=== PATIENT | female | born 1960 | race Caucasian/White ===

== ENCOUNTER → 2019-02-26 12:40 | Outpatient (CLI) | payer OTHER, SELFPAY ==
--- NOTE | 2019-02-26 12:43 | DI.US.S_ITS ---
PROCEDURE: US PERIPH VENOUS LOW EXTREM RT INDICATIONS: Rule out aneurysm TECHNIQUE: Real-time imaging, as well as color and pulse Doppler interrogation, were performed of the lower extremity deep veins from the inguinal ligament to the popliteal fossa. COMPARISON: None. FINDINGS: The common femoral, femoral and popliteal veins are normally compressible, and free of intraluminal thrombus. Color and pulse Doppler demonstrate normal phasic intraluminal flow. There is normal augmentation response to distal compression maneuver. Patient's reported area of palpable lump correlates to prominent varicose veins which all appears compressible. No evidence of intraluminal filling defect. Multiple lymph nodes are seen in right inguinal region and right proximal thigh measures up to 3.2 x 1.3 x 1.8 cm in size. IMPRESSION: 1. No evidence of DVT in visualized right lower extremity veins. 2. Compressible varicose veins in right calf region corresponds to patient's reported area of palpable lump. No evidence of venous thrombosis within the varicose veins. 3. Prominent right renal lymph nodes as above. Dictated by: Sylvester Whatley M.D. on 02/26/2019 at 13:47 Approved by: Sylvester Whatley M.D. on 02/26/2019 at 13:53
== END ==
PROVIDERS: PCP Nurse Practitioner; Visit Provider Nurse Practitioner
DX: M79.604 Pain in right leg (principal); I83.811 Varicose veins of right lower extremity with pain; I83.891 Varicose veins of right lower extremity with other complications; R59.0 Localized enlarged lymph nodes; M79.89 Other specified soft tissue disorders
CPT/HCPCS: 93971

== ENCOUNTER → 2019-03-12 07:57 | Outpatient (CLI) | payer OTHER, SELFPAY ==
--- NOTE | 2019-03-12 09:06 | DI.CT.S_ITS ---
PROCEDURE: CT ABDOMEN PELVIS W CON INDICATIONS: swollen lymph nodes right renal, inguinal, TECHNIQUE: After the administration of oral and intravenous contrast, 5 mm thick sections acquired from the diaphragms to the symphysis. 5 mm thick coronal and sagittal reformats were performed. For radiation dose reduction, the following was used: automated exposure control, adjustment of mA and/or kV according to patient size. COMPARISON: [facility], , PERIPH VENOUS LOW EXTREM RT, 02/26/2019, 13:07. FINDINGS: Image quality: Excellent. ABDOMEN: Lung bases: Lung bases are clear. Heart size is normal. Solid organs: Liver is normal in size and enhancement. Gallbladder unremarkable. Biliary system is non-dilated. Pancreas enhances normally. Borderline splenomegaly measuring 11.5 cm in the cephalocaudad dimension No adrenal nodules. Kidneys are normal in size and enhancement, without hydronephrosis. Peritoneum and bowel: Stomach, small bowel, and colon loops are normal in caliber and wall thickness. No free fluid or air. Nodes and vessels: Aorta and IVC are unremarkable. Numerous retroperitoneal aortocaval lymphadenopathy is seen measuring up to 2.7 x 2.2 cm in the left periaortic region image 39 series 2. Borderline enlarged mesenteric lymph nodes also present for example image 42 series 2. Miscellaneous: No ventral hernias. Right chest wall/lower axillary adenopathy measures 1 cm on image 4 series 2. PELVIS: Genitourinary: Bladder unremarkable Miscellaneous: Extensive pelvic adenopathy involving the external iliac/common femoral chain, pelvic sidewall regions. Example enlarged right common femoral lymph node measuring 2.5 x 2.1 cm image 76 series 2 Bilateral inguinal enlarged lymph nodes measuring up to 2.1 x 1.5 cm on the right, and 2.4 x 1.3 cm on the left. Bones: No suspicious bony lesions. No vertebral body compression fractures. Left hip arthroplasty. Nonspecific sclerosis involving the anterior left sacral ala. Spondylosis and facet arthropathy. IMPRESSION: Diffuse abdominal and pelvic lymphadenopathy as detailed above (concordant with the ultrasound findings from comparison study dated 04/28/18), and borderline splenomegaly. Findings most concerning for lymphoma versus metastatic disease. Recommend oncology consultation Dictated by: Doug Damon M.D. on 03/12/2019 at 9:32 Approved by: Doug Damon M.D. on 03/12/2019 at 9:44
== END ==
PROVIDERS: Visit Provider Nurse Practitioner
DX: R59.0 Localized enlarged lymph nodes (principal); M79.604 Pain in right leg; M79.89 Other specified soft tissue disorders
CPT/HCPCS: 74177; Q9967

== ENCOUNTER 2019-03-13 19:26 | Emergency (ER) | payer OTHER, SELFPAY ==
[2019-03-13 19:34] VITALS: BP 184/99; PULSE 88; RESP 16; TEMP 37.1; O2SAT 100; BMI 35.5
--- NOTE | 2019-03-13 19:46 | DI.CT.S_ITS ---
PROCEDURE: CT HEAD/BRAIN WO CON INDICATIONS: Dizziness and not feeling well TECHNIQUE: Noncontrast 4.5 mm thick angled axial sections acquired from the foramen magnum to the vertex, with coronal and sagittal reformats. For radiation dose reduction, the following was used: automated exposure control, adjustment of mA and/or kV according to patient size. COMPARISON: None. FINDINGS: Image quality: Excellent. CSF spaces: Basal cisterns are patent. No extra-axial fluid collections. Ventricles are normal in size and shape. Brain: No midline shift. No intracranial masses or hemorrhage. Braga-white matter interface is normal. Skull and face: Calvarium and visualized facial bones are intact, without suspicious lesions. Sinuses: Visualized sinuses and mastoids are clear. IMPRESSION: Normal for age. Dictated by: Sascha Rivas M.D. on 03/13/2019 at 20:25 Approved by: Sascha Rivas M.D. on 03/13/2019 at 20:26
[2019-03-13 20:09] LABS: Prothrombin Time 11.3 SECONDS (10.1-12.7)
[2019-03-13 20:10] LABS: Hematocrit 39.9 % (36-46); Hemoglobin 13.4 g/dL (12.0-16.0); Mean Corpuscular HGB Conc 33.5 % (30-36); Mean Corpuscular Volume 89.5 fL (80-100); Platelet Count 111 X10^3/uL (150-400); Red Blood Cell Count 4.46 X10^6/uL (4.0-5.2); Red Cell Distribution Width 14.7 % (11.6-14.8); White Blood Cell Count 17.6 X10^3/uL (4.5-11.0)
[2019-03-13 20:12] LABS: PTT Partial Thromboplastin Tim 31 SECONDS (26.4-36.2)
[2019-03-13 20:13] LABS: Add Manual Diff / Slide Review YES
[2019-03-13 20:14] LABS: Alanine Aminotransferase 21 IU/L (<35); Albumin 4.5 g/dL (3.5-5.0); Albumin Globulin Ratio 1.7 (1.0-2.8); Alkaline Phosphatase 80 U/L (38-126); Aspartate Aminotransferase 34 IU/L (14-36); Bilirubin Total 0.5 mg/dL (0.2-1.3); Blood Urea Nitrogen 20 mg/dL (7-17); Calcium 9.3 mg/dL (8.4-10.2); Carbon Dioxide 24 mmol/L (22-32); Chloride 104 mmol/L (98-107); Estimated Glomerular Filt Rate 56.9 mL/min (>60); Globulin 2.7 g/dL (1.7-4.1); Glucose 106 mg/dL (70-100); Lipase 190 U/L (23-300); Potassium 4.7 mmol/L (3.4-5.1); Sodium 136 mmol/L (137-145); Total Protein 7.2 g/dL (6.3-8.2)
[2019-03-13 20:16] LABS: HEMOLYSIS 61 (0-50)
--- NOTE | 2019-03-13 20:20 | ED.NEUROSD ---
HPI - Neuro Symptoms/Deficit General Chief Complaint: Neuro Symptoms/Deficit Stated Complaint: dizzy, shakey, states burning in her brain Time Seen by Provider: 03/13/19 19:45 Source: patient Mode of arrival: Wheelchair Limitations: no limitations History of Present Illness HPI Narrative: 58-year-old female here for evaluation of multiple symptoms to include headaches, dizziness, nausea and vomiting. She states she woke up earlier today with the room spinning sensation. Has had multiple episodes of vomiting throughout the day. She states that the dizziness episodes of worsening throughout the day now she has a headache. She states that it feels like her brain is on fire. No vision changes, no rashes. No numbness and tingling in upper and lower extremities. On Anticoagulants: No Related Data Previous Rx's Medication Instructions Recorded lisinopril 2.5 mg tablet 2.5 mg PO DAILY #30 tab 02/26/19 meclizine 25 mg PO TID PRN #21 tab 03/13/19 ondansetron HCl [Zofran] 4 mg PO Q6H PRN #10 tab 03/13/19 Allergies Allergy/AdvReac Type Severity Reaction Status Date / Time No Known Drug Allergies Allergy Unverified 03/13/19 19:42 Review of Systems Constitutional Constitutional: Denies fever(s) and Reports headache(s) Eyes Eyes: Denies change in vision ENT Ears, Nose, Mouth, and Throat: Reports headache(s), Reports sinus pressure and Denies sore throat Cardiovascular Cardiovascular: Denies chest pain, Denies edema, Denies palpitations and Denies dyspnea Respiratory Respiratory: Denies dyspnea Gastrointestinal Gastrointestinal: Denies abdominal pain, Denies change in stool character, Reports nausea and Reports vomiting Musculoskeletal Musculoskeletal: Denies myalgias and Denies arthralgias Integumentary/Breasts Skin/Breast: Denies lesions and Denies rash Neurologic Neurologic: Denies burning sensations and Reports headache(s) Endocrine Endocrine: Denies palpitations Hematologic/Lymphatic Hematologic/Lymphatic: Denies easy bleeding and Denies easy bruising Patient History Medical History Acne (Inactive ~1980) Asthma (Chronic) Carpal tunnel syndrome (Chronic) Cervical cancer (Chronic ~2012) Hip pain, right (Chronic) Thyroid nodule (Chronic) Varicose vein of leg (Acute) Surgical History (Updated 03/03/19 @ 20:01 by Kyung Trinidad) Anesthesia (Resolved) History of hip replacement (~03/2013) History of third molar tooth extraction Status post cone biopsy of cervix (~08/2013) Family History (Updated 03/03/19 @ 20:04 by Kyung Trinidad) Brother Age: 76 High cholesterol Mother Essential hypertension Mental health problem Sister Age: 67 Joint problem Father Cancer Grandfather Cancer Grandmother Stroke Social History Smoking Status: Never smoker alcohol intake: current substance use type: does not use alcohol intake frequency: holidays/special occasions only Substance Use Type: does not use Exam Initial Vital Signs Initial Vital Signs: Vital Signs Temperature 98.8 F 03/13/19 19:34 Pulse Rate 88 03/13/19 19:34 Respiratory Rate 16 03/13/19 19:34 Blood Pressure 184/99 H 03/13/19 19:34 Pulse Oximetry 100 03/13/19 19:34 Const General: cooperative and comfortable Orientation: alert, awake and oriented x3 HENMT Head: normal to inspection and normocephalic Ears: TM's normal bilaterally Nose: external nose normal Eyes Pupils: PERRL EOM: EOM intact bilaterally Resp Effort & Inspection: normal respiratory effort Auscultation: clear to auscultation bilaterally Cardio Rate: regular rate Rhythm: regular rhythm GI Inspection: non-distended Palpation: soft and No firm Back/Spine/Pelvis Back: No CVA tenderness Skin Lesions: no lesions Rashes: no rashes Neuro General: alert, awake and oriented x3 Cranial Nerves: CN's II-XI intact bilaterally Cognition: normal cognition Speech: speech normal Gait: normal gait Motor: muscle tone normal throughout Sensory Exam: no sensory deficits noted Extrem General: normal to inspection and capillary refill normal Psych Appearance: grossly normal and well kempt Course Orders Ordered: ED Orders 03/13/19 19:42 Complete Blood Count AUTO DIFF Stat Comprehensive Metabolic Panel Stat Ethanol (ETOH) Stat Lipase Stat Partial Thromboplastin Time Stat Prothrombin Time INR Stat Troponin I Stat 03/13/19 19:46 CT head/brain wo con Stat 03/13/19 19:47 EKG-12 Lead Stat Discontinued Medications Diazepam (Valium) 2 mg IV NOW ONE Stop: 03/13/19 20:22 Last Admin: 03/13/19 20:31 Dose: 2 mg Documented by: ABDULAZIZ Diphenhydramine HCl (Benadryl) 25 mg IV NOW ONE Stop: 03/13/19 21:36 Last Admin: 03/13/19 21:42 Dose: 25 mg Documented by: ABDULAZIZ Sodium Chloride (Normal Saline 0.9%) 1,000 mls @ 1,000 mls/hr IV BOLUS ONE Stop: 03/13/19 20:44 Last Infusion: 03/13/19 20:49 Dose: 1,000 mls/hr Documented by: Admin: 03/13/19 20:41 Dose: 1,000 mls/hr Documented by: ABDULAZIZ Metoclopramide HCl (Reglan) 10 mg IV NOW ONE Stop: 03/13/19 21:36 Last Admin: 03/13/19 21:42 Dose: 10 mg Documented by: ABDULAZIZ Ondansetron HCl (Zofran) 4 mg IV NOW ONE Stop: 03/13/19 20:22 Last Admin: 03/13/19 20:31 Dose: 4 mg Documented by: ABDULAZIZ Vital Signs Vital signs: Vital Signs - 8 hr 03/13/19 19:34 03/13/19 21:00 03/13/19 21:40 Temperature 98.8 F Pulse Rate 88 88 90 Respiratory Rate 16 16 16 Blood Pressure 184/99 H Blood Pressure [Right Arm] 126/72 135/83 Pulse Oximetry 100 97 97 03/13/19 22:27 Temperature Pulse Rate 89 Respiratory Rate 18 Blood Pressure 128/70 Blood Pressure [Right Arm] Pulse Oximetry 94 MDM - Neuro Symptoms/Deficit Lab Data Attestation: I reviewed the patient's lab results. Result diagrams: 03/13/19 19:42 03/13/19 19:42 Labs: Lab Results 03/13/19 03/13/19 03/13/19 Range/Units 19:42 19:42 19:42 WBC 17.6 H (4.5-11.0) X10^3/uL RBC 4.46 (4.0-5.2) X10^6/uL Hgb 13.4 (12.0-16.0) g/dL Hct 39.9 (36-46) % MCV 89.5 (80-100) fL MCH 30.0 (26-34) PG MCHC 33.5 (30-36) % RDW 14.7 (11.6-14.8) % Plt Count 111 L (150-400) X10^3/uL Neut % (Auto) Not Reportable Lymph % (Auto) Not Reportable [place] % (Auto) Not Reportable Eos % (Auto) Not Reportable Baso % (Auto) Not Reportable Lymph # (Auto) Not Reportable [place] # (Auto) Not Reportable Baso # (Auto) Not Reportable Total Counted 100 Seg Neutrophils % 14.0 L (38-70) % Band Neutrophils % 2.0 L (3-7) % Lymphocytes % (Manual) 80.0 H (25-45) % Monocytes % (Manual) 3.0 (2-11) % Eosinophils % (Manual) 1.0 L (2-4) % Neutrophils # (Manual) 2816 L (1279-9414) /uL Reactive Lymphocytes 1+ H Platelet Estimate Decreased on smear RBC Morphology Normal morphology PT 11.3 (10.1-12.7) SECONDS INR 1.0 (0.9-1.3) APTT 31 (26.4-36.2) SECONDS Sodium 136 L (137-145) mmol/L Potassium 4.7 (3.4-5.1) mmol/L Chloride 104 (98-107) mmol/L Carbon Dioxide 24 (22-32) mmol/L BUN 20 H (7-17) mg/dL Creatinine 1.00 (0.52-1.04) mg/dL Estimated GFR 56.9 L (>60) mL/min BUN/Creatinine Ratio 20.0 (6-22) Glucose 106 H (70-100) mg/dL Calcium 9.3 (8.4-10.2) mg/dL Total Bilirubin 0.5 (0.2-1.3) mg/dL AST 34 (14-36) IU/L ALT 21 (<35) IU/L Alkaline Phosphatase 80 (38-126) U/L Troponin I < 0.012 (0.01-0.034) ng/mL Total Protein 7.2 (6.3-8.2) g/dL Albumin 4.5 (3.5-5.0) g/dL Globulin 2.7 (1.7-4.1) g/dL Albumin/Globulin Ratio 1.7 (1.0-2.8) Lipase 190 (23-300) U/L Ethyl Alcohol < 10 ( - 10) mg/dL Imaging Data CT scan - head: Radiologist's impression: [address] [address] [address] Scan Report Signed Patient: Monika Jeffers [facility]#: [id number] : 1Acct:[id number] Age/Sex: 58 / FDate of Service: 03/13/19 Loc: ED Accession Number: [id number] Procedure: CT head/brain wo con Ordering Provider: Brandon Rivera D.O. PROCEDURE: CT HEAD/BRAIN WO CON INDICATIONS: Dizziness and not feeling well TECHNIQUE: Noncontrast 4.5 mm thick angled axial sections acquired from the foramen magnum to the vertex, with coronal and sagittal reformats. For radiation dose reduction, the following was used: automated exposure control, adjustment of mA and/or kV according to patient size. COMPARISON: None. FINDINGS: Image quality: Excellent. CSF spaces: Basal cisterns are patent. No extra-axial fluid collections. Ventricles are normal in size and shape. Brain: No midline shift. No intracranial masses or hemorrhage. Braga-white matter interface is normal. Skull and face: Calvarium and visualized facial bones are intact, without suspicious lesions. Sinuses: Visualized sinuses and mastoids are clear. IMPRESSION: Normal for age. Dictated by: Sascha Rivas M.D. on 03/13/2019 at 20:25 Approved by: Sascha Rivas M.D. on 03/13/2019 at 20:26 ECG Data Attestation: I personally reviewed and interpreted this ECG as follows: Prior ECG tracings: not available for review Interpretation: Sinus rhythm Ventricular rate 80 Occasional PAC Normal QRS Normal QTC Nonspecific ST T wave changes MDM Narrative Medical decision making narrative: Patient does not have any focal neurologic deficits. Head CT is unremarkable. Does have a leukocytosis however this could be secondary to demargination from the vomiting. She also describes sinus congestion which could be causing leukocytosis as well from an upper respiratory infection. This sinus congestion could also be aiding to her vertigo and headache. Her vertigo was much improved after the Valium. The headache is much improved after Reglan and Benadryl. Patient states she feels much better. She was given return precautions and follow-up instructions. She expressed understanding and agreement with plan. We did discuss use of decongestants. Discharge Plan Departure Patient Disposition: Home Clinical Impression: Vertigo Headache Qualifiers: Headache type: unspecified Headache chronicity pattern: unspecified pattern Intractability: not intractable Qualified Code(s): R51 - Headache Discharge Date/Time: 03/13/19 22:27 Instructions: DI for Vertigo Activity Restrictions/Additional Instructions: Take the medications as directed. Increase your fluid intake. Recommend that you start on a antihistamine such as Claritin or Mikayla or Zyrtec. You can buy these [id number]. Contact your primary provider for follow-up. Return to the emergency department for any new symptoms Prescriptions: New meclizine 25 mg tablet 25 mg PO TID PRN (Reason: dizziness) Qty: 21 RF: 0 ondansetron HCl [Zofran] 4 mg tablet 4 mg PO Q6H PRN (Reason: nausea and vomiting) Qty: 10 RF: 0 No Action lisinopril 2.5 mg tablet 2.5 mg PO DAILY Qty: 30 RF: 1
[2019-03-13 20:26] LABS: Ethanol (ETOH) < 10 mg/dL; Troponin I < 0.012 ng/mL (0.01-0.034)
[2019-03-13] MEDS: ONDANSETRON 4 MG/2 ML INJ IV (20:31)
[2019-03-13] MEDS: diazePAM 10 MG/2 ML SYRINGE 2 MG IV (20:31)
[2019-03-13 20:37] LABS: Neutrophils Absolute Manual 2816 /uL (3000-5900); Total Cells Counted 100
[2019-03-13 20:38] LABS: Platelet Estimate Decreased on smear; RBC Morphology Normal Morphology
[2019-03-13 20:39] LABS: Reactive Lymphocytes 1+
[2019-03-13] MEDS: SODIUM CHLORIDE 0.9% 1,000 ML 1000 ML IV (20:41)
[2019-03-13 21:00] VITALS: BP 126/72; PULSE 88; RESP 16; O2SAT 97
[2019-03-13 21:40] VITALS: BP 135/83; PULSE 90; RESP 16; O2SAT 97
[2019-03-13] MEDS: METOCLOPRAMIDE 10 MG/2 ML INJ IV (21:42)
[2019-03-13] MEDS: diphenhydrAMINE 50 MG/ML VIAL 25 MG IV (21:42)
[2019-03-13 22:27] VITALS: BP 128/70; PULSE 89; RESP 18; O2SAT 94
== END 2019-03-13 22:27 | disposition home or self-care (01) ==
PROVIDERS: Emergency Provider Emergency Medicine
DX: R42 Dizziness and giddiness (principal); R51 Headache
CPT/HCPCS: 36415; 70450; 80053; 80320; 83690; 84484; 85025; 85610; 85730; 93005; 96374; 96375; 99283; 99285; J1200; J2405; J2765; J3360

== ENCOUNTER → 2019-03-27 15:56 | Outpatient (CLI) | payer OTHER, SELFPAY ==
--- NOTE | 2019-03-27 15:58 | DI.US.S_ITS ---
PROCEDURE: US SOFT TISSUE HEAD AND NECK INDICATIONS: RULE OUT PAROTID MASS, LYMHADENOPATHY TECHNIQUE: Real-time scanning was performed of the neck region of interest, with image documentation. COMPARISON: [facility], US, THYROID, 04/16/2014, 16:30. FINDINGS: Multiple prominent and mildly enlarged bilateral neck lymph nodes are noted ranging in size from 7-14 mm in short axis. Largest node is near the right parotid gland. No definite intraparotid masses are identified. Incidental note made of 5.0 x 2.6 x 3.9 cm complex nodule with minimal internal vascularity in the left lobe of thyroid gland and 3.1 x 2.4 x 2.2 cm predominately solid nodule in the right lobe of thyroid gland which are not significantly changed compared to prior thyroid ultrasound. IMPRESSION: Prominent and mildly enlarged bilateral neck lymph nodes which could be reactive or neoplastic. Recommend correlation with clinical data and CT scan the soft tissue neck with contrast if clinically indicated. Dictated by: Jaqueline Gordon MD, PhD on 03/27/2019 at 19:05 Approved by: Jaqueline Gordon MD, PhD on 03/27/2019 at 19:08
--- NOTE | 2019-03-27 15:58 | DI.RAD.S_ITS ---
PROCEDURE: XR CHEST 2V INDICATIONS: rule out pancoast tumor TECHNIQUE: 2 views of the chest were acquired. COMPARISON: None. FINDINGS: Surgical changes and devices: None. Lungs and pleura: Lungs are clear. No pleural effusions or pneumothorax. Mediastinum: Mediastinal contours are normal. Heart size is normal. Bones and chest wall: No suspicious bony abnormalities. Soft tissues appear unremarkable. IMPRESSION: Normal for age, no evidence of malignancy. Specifically no apical mass lesion is found. Depending on clinical status followup by MR scanning without and with contrast may be warranted if symptomatology is considered to be potentially primarily external to the chest cavity itself. Dictated by: Sascha Rivas M.D. on 03/27/2019 at 16:18 Approved by: Sascha Rivas M.D. on 03/27/2019 at 16:18
--- NOTE | 2019-03-30 13:36 | ONC.MSW ---
Description: New Referral Initial T/C Activity: Called pt to inform her that we've received her referral, introduced my role as navigator, and briefly discussed the role and services of ongoing navigation support. Pt is scheduled to have her biopsy tomorrow with [facility], and is requesting an urgent referral. INHALATION THERAPY AIDE assured her that I will work with scheduling to try to get her in next week, and that the next person that she will hear from will be the flooring mechanic. She expressed understanding, has no further needs at this time.
== END ==
PROVIDERS: Family Provider Nurse Practitioner; PCP Nurse Practitioner; Visit Provider Surgery
DX: R59.9 Enlarged lymph nodes, unspecified (principal); R93.89 Abnormal findings on diagnostic imaging of other specified body structures; H02.401 Unspecified ptosis of right eyelid
CPT/HCPCS: 71046; 76536

== ENCOUNTER 2019-03-31 06:31 | Day surgery (SDC) | payer OTHER, SELFPAY ==
[2019-03-30 10:30] VITALS: BMI 35.9
[2019-03-31] VITALS (7 sets, daily range): BP systolic 110–144; BP diastolic 65–88; PULSE 70–91; RESP 8–21; TEMP 36.1–36.3; O2SAT 96–100; BMI 35.4
--- NOTE | 2019-03-31 | PATH_ITS ---
[facility] Accession Number: [id number] . 01 Material submitted: . lymph node - LEFT NECK CERVICAL LYMPH NODE . 01 Clinical history: . Per a telephone conversation with Dr. Motta on 04/02/2019, the patient has diffuse lymphadenopathy, including involvement of lymph nodes in the cervical neck, axillae, and groin. . 01 Diagnosis: LYMPH NODE, LEFT NECK CERVICAL, EXCISIONAL BIOPSY: . Involvement by Small Lymphocytic Lymphoma (SLL; see Comments) JUAN 04/03/2019 1745 Local . 01 Comment: A subset of cells in the proliferation centers of the tissue exhibit weak nuclear expression of cyclin D1, a finding that has been described in some CLL/SLL cases (see reference). Evaluation of the patient's peripheral blood is recommended to determine if she may also exhibit an abnormal B-cell population in the peripheral circulation. If there is also peripheral blood involvement, FISH studies could be performed on the blood to look for genomic abnormalities with prognostic significance in CLL/SLL and to formally exclude the t(11;14) of mantle cell lymphoma. If the patient does not have significant peripheral blood involvement by CLL/SLL and if clinical interest warrants, sections of the paraffin-embedded tissue could also be forwarded upon request for a FISH study to further exclude the t(11;14) of mantle cell lymphoma. . REFERENCE: . Khadijah De Leon et al. (2012) Chronic Lymphocytic Leukemia/Small Lymphocytic Lymphoma with Cyclin D1 Positive Proliferation Centers Do Not Have CCND1 Translocations or Gains and Lack SOX11 Expression. Am. J. Clin. Pathol. 138(1):132-139. . 01 Electronically signed: . Maeve Otoole MD, Pathologist NPI- [id number] . 01 Gross description: . Received in formalin, labeled left neck cervical lymph node, is a lymph node (1.9 x 1.6 x 0.5 cm). Serially sectioned and entirely submitted in cassette A1. ([id number]) /MRV 04/01/2019 1453 Local . 01 Microscopic: . H/E-stained sections reveal several cross-sections of a mildly to moderately enlarged lymph node with essentially complete effacement by an atypical lymphoid infiltrate of predominantly small cell size. The lymphocytes have relatively round nuclei, condensed chromatin, and only a small amount of cytoplasm. Scattered pockets of larger lymphocytes are present that may represent overrun germinal centers or proliferation centers. Rare small groups of tissue histiocytes are also seen. There is no significant plasmacytic component discernable on the H/E, and no mixed inflammatory infiltrate of neutrophils or eosinophils is noted. The mitotic rate is low, and no areas of incipient or geographic necrosis are identified. No atypical Hodgkin-like cell population is seen, and there is no increase in background fibrosis or thickening of the milagros capsule. . Select immunohistochemical studies* were performed for further evaluation of the lymphoid infiltrate, with accompanying positive and negative controls. The abnormal lymphocytes are B-cells with uniform expression of Pax5 and CD20 (with variable intensity) and coexpression of uniform CD5 (with weak to moderate intensity) and bcl-2 (strong intensity), variable CD43 (weak to moderate intensity) and focal to variable CD23 (weak intensity). The B-cells are negative for bcl-6. Some of the larger lymphocytes in the proliferation centers exhibit weak nuclear expression of cyclin D1, but the vast majority of B-cells are negative for cyclin D1. The Py-02-dbrqtoy proliferation rate among the lymphocytes reaches up to 20-25% inside the scattered proliferation centers, but is only 2-3% among lymphocytes outside of the proliferation centers. Based on immunostains for kappa and lambda light chains, there is a suggestion of kappa expression/restriction among the abnormal B-cells, and a very small subset of background plasma cells exhibits mild kappa-skewing. A small subset of CD3+/CD5+ T-cells with more intense expression of CD5 and CD43 is also present in the background of the abnormal B-cells. . * Technical note: These tests and their performance characteristics have been determined by [facility]. They have not been cleared or approved by the U.S. Food and Drug Administration. The FDA has determined that such clearance or approval is not necessary. These tests are used for clinical purposes, and should not be regarded as investigational or for research. . 01 Pathologist provided ICD-10: C85.91, R59.1 . 01 CPT . 126684, A06801, H78415 Performed at: [address] [facility], [place], [place] [id number] MD Thiago Bautista MD Phone: [phone]
[2019-03-31] MEDS: LACTATED RINGERS 1,000 ML 42 ML IV (07:33)
--- NOTE | 2019-03-31 07:39 | PM.PREOP ---
Pre-operative Note Interval Note History & Physical reviewed/Exam performed by Physician: Yes Changes to H&P: No
[2019-03-31] MEDS: CEFAZOLIN 2 GM/100 ML FROZ.PIGGY IV (07:48)
--- NOTE | 2019-03-31 08:11 | SUR.OPER ---
Supine on padded OR bed, head on gel doughnut, bilateral arm padded and tucked at side, legs uncrossed, safety belt at thigh, tape over blanket over lower legs .
[2019-03-31] MEDS: BUPIVACAINE 0.25% W/ EPI (PF) 10 ML VIAL 20 ML INJ (08:17)
--- NOTE | 2019-03-31 08:49 | PM.OP.1 ---
Operative Date/Time/Diagnoses Date of procedure: 03/31/19 Time of procedure: 08:50 Pre-op diagnosis: lymphadenopathy Post-op diagnosis: same Procedure & Clinicians Procedure: left neck cervical lymph node excisional biopsy Same procedure as scheduled: Yes Indications: lymphadenopathy Surgeon: Meredith Motta Click Yes if Unassisted: Yes Anesthesia Type: General (LMA) Operative Notes Findings: Enlarged cervical node Closure Type: primary Specimen(s): other (left neck cervical chain lymph node) Prosthetic devices, grafts, tissues, transplants, or devices: Estimated Blood Loss (mL): 1 Blood products transfused: none Procedure in detail: The patient was brought into the operating room and placed supine on the OR table. Sequential compression devices were placed on both legs and turned on. Appropriate perioperative antibiotics were given prior to the start of surgery. General anesthesia was induced and the patient was intubated with an LMA. The left neck was prepped and draped in sterile fashion using Betadine. Surgical time-out was completed. Local anesthetic using 5 mL of 0.25% Marcaine with epi was injected in the skin overlying the palpable cervical chain node. A 2 cm longitudinal incision was then made using a 15 blade. Dissection was carried down through the platysma, and through the fascia of the sternocleidomastoid muscle. An enlarged lymph node was encountered, which was carefully dissected out from the surrounding tissue. Vascular and lymphatic structures going to the node were tied off with 3 0 silk. The lymph node was removed and passed off the table for pathology. Hemostasis was achieved in the neck using electrocautery very sparingly, and silk ties. There was good hemostasis at the end of the case. The skin was closed in 2 layers with 3 0 Vicryl and 4 Monocryl subcuticular suture. The skin edges were then sealed with Dermabond. This concluded the procedure. At this point the needle sponge and instrument counts were correct. The lymph node was passed off the table for pathology. Patient was awakened from anesthesia and extubated. She was transferred to the postanesthesia care unit in stable condition. Complications: none Post-operative Condition: stable Disposition: PACU
--- NOTE | 2019-03-31 09:06 | SUR.PHASEI ---
pt awake and oriented, pleased with how well she feels, no discomfort/nausea. Tolerating ice chips well, preparing to transfer.
== END 2019-03-31 09:30 | disposition home or self-care (01) ==
PROVIDERS: Family Provider Nurse Practitioner; PCP Nurse Practitioner; Visit Provider Surgery
PROC: (CPT 38510; principal; 2019-03-31 07:45)
DX: C85.91 Non-Hodgkin lymphoma, unspecified, lymph nodes of head, face, and neck (principal); I10 Essential (primary) hypertension; J45.909 Unspecified asthma, uncomplicated; Z85.41 Personal history of malignant neoplasm of cervix uteri
CPT/HCPCS: 38510; J0690; J1100; J2405; J2704; J3010

== ENCOUNTER → 2019-06-08 07:04 | Outpatient (CLI) | payer OTHER, SELFPAY ==
[2019-06-08 08:11] LABS: Cholesterol 155 mg/dL (140-199); HDL Cholesterol 43 mg/dL (40-60); LDL Cholesterol Calculated 103 mg/dL (<100); Triglycerides 47 mg/dL (35-150)
== END ==
PROVIDERS: Family Provider Nurse Practitioner; PCP Family Medicine; Referring Provider Family Medicine; Visit Provider Family Medicine
DX: E78.5 Hyperlipidemia, unspecified (principal)
CPT/HCPCS: 36415; 80061

== ENCOUNTER → 2019-08-05 17:08 | Outpatient (CLI) | payer OTHER, SELFPAY ==
--- NOTE | 2019-08-05 | DI.MRI.S_ITS ---
PROCEDURE: MR ORBITS FACE NECK WO/W CON INDICATIONS: unspecified ptosis of bilateral eyelids TECHNIQUE: Noncontrast sagittal T1 spin echo, axial FLAIR, axial gradient echo, axial diffusion and ADC acquired through the brain. Coronal STIR, thin-slice axial T1 spin echo through the orbits. After the administration of contrast, thin-slice axial and coronal T1 spin echo with fat saturation through the orbits, axial T1 spin echo with fat saturation through the brain. COMPARISON: None. FINDINGS: Image quality: Excellent. Orbits: Globes are symmetrical. The optic nerves are normal in size, without abnormal signal or enhancement. No retrobulbar masses or fat abnormalities. The extra-ocular muscles are normal and symmetric in appearance. Lacrimal glands are enlarged bilaterally, right greater than left. The lateral glands demonstrate mild bilateral postcontrast enhancement. No inflammatory changes identified adjacent to the lacrimal glands. Optic chiasm is normal. Periorbital soft tissues appear normal. CSF spaces: Ventricles are normal in size and shape. Basal cisterns are patent. No extra-axial fluid collections. Brain: There is a 0.8 cm in diameter round lesion involving the inferior and lateral margin of the right temporal lobe which demonstrates increased T1 signal and mixed T2 signal. No significant postcontrast enhancement associated with the right temporal lobe lesion. No abnormal intracranial enhancement. Braga-white matter interface is intact. Diffusion weighted images demonstrate no acute ischemic insults. Pituitary gland appears normal, without sellar or suprasellar masses. Brainstem appears normal. Normal intravascular flow voids are present. Skull and face: Calvarial marrow is normal in signal. Multiple enlarged bilateral upper neck lymph nodes noted. The largest visualized right neck lymph node measures 1.6 cm in short axis. The largest visualized left upper neck lymph node measures 1.8 cm in short axis. Sinuses: Sinuses and mastoids are clear. IMPRESSION: 1. Bilateral lacrimal gland enlargement. Differential diagnosis includes include lymphoma, sarcoidosis, Sjogren's syndrome and orbital inflammatory pseudotumor. 2. Bilateral upper neck lymphadenopathy concerning for lymphoma versus metastatic disease. 3. 8 mm right temporal lobe lesion with imaging characteristics most compatible with cavernous angioma. Dictated by: Jaqueline Gordon MD, PhD on 08/06/2019 at 8:47 Approved by: Jaqueline Gordon MD, PhD on 08/06/2019 at 9:01
== END ==
PROVIDERS: Family Provider Nurse Practitioner; PCP Family Medicine; Referring Provider Psychiatry & Neurology Neurology; Visit Provider Psychiatry & Neurology Neurology
DX: H02.403 Unspecified ptosis of bilateral eyelids (principal); H04.033 Chronic enlargement of bilateral lacrimal glands; G93.9 Disorder of brain, unspecified; R59.1 Generalized enlarged lymph nodes
CPT/HCPCS: 70543; A9579

== ENCOUNTER → 2019-08-18 15:03 | Outpatient (CLI) | payer OTHER, SELFPAY ==
[2019-08-19 00:49] LABS: COVID19 Sendout Not Detected (Not Detect)
== END ==
PROVIDERS: Family Provider Nurse Practitioner; PCP Family Medicine; Visit Provider Registered Nurse
DX: Z11.59 Encounter for screening for other viral diseases (principal); Z01.812 Encounter for preprocedural laboratory examination
CPT/HCPCS: 87635

== ENCOUNTER 2019-08-21 07:30 | Day surgery (SDC) | payer OTHER, SELFPAY ==
[2019-08-19 07:22] VITALS: BMI 35.7
--- NOTE | 2019-08-21 | DI.RAD.S_ITS ---
PROCEDURE: XR CHEST 1V INDICATIONS: post portacath placement TECHNIQUE: One view of the chest was acquired. COMPARISON: [facility], CR, XR CHEST 2V, 03/27/2019, 15:58. FINDINGS: Lung volumes are low and the patient is lordotic. Surgical changes and devices: Right IJ Mediport is present. Tubing tip is likely at the cavoatrial junction versus right atrium. Lungs and pleura: Lungs are clear. No pleural effusions or pneumothorax. Mediastinum: Mediastinal contours appear normal. Heart size is normal. Bones and chest wall: No suspicious bony lesions. Overlying soft tissues appear unremarkable. IMPRESSION: 1. Right IJ Mediport placement. Tip location likely altered by patient positioning and low lung volumes. Consider repeat chest radiograph with improved patient positioning when the patient is able. 2. No evidence of pneumothorax. Dictated by: Alvina Chan M.D. on 08/21/2019 at 11:37 Approved by: Alvina Chan M.D. on 08/21/2019 at 11:39
[2019-08-21 08:22] VITALS: BP 141/92; PULSE 76; RESP 17; TEMP 36.9; O2SAT 98; BMI 35.7
[2019-08-21] MEDS: LACTATED RINGERS 1,000 ML 100 ML IV (08:42)
--- NOTE | 2019-08-21 10:10 | PM.HP.1 ---
History of Present Illness History of Present Illness Date Patient Seen: 08/21/19 Time Patient Seen: 10:10 Chief complaint: [id number] PORT-A-CATH INSERTION Narrative: This is a 58-year-old woman lymphoma diagnosed in March of 2019. She was stable and did not need active treatment until recently. She has now been referred for a portacath by Dr. Miller. On 04/29/2019, patient underwent PET scan. The PET scan showed cervical, bilateral subpectoral bilateral axillary, retroperitoneum, mesenteric, bilateral iliac and bilateral inguinal lymphadenopathy with mildly enlarged lymph nodes and low level FDG activity, mild splenomegaly, a soft tissue nodule in the right back superficial to the right scapula most likely a sebaceous cyst and a left thyroid mass with low FDG activity suggesting benign etiology She is followed by Dr. Richie Martin for the right eye ptosis which presumably caused by myasthenia gravis with negative serum ordered antibody findings. Patient has tried Mestinon which showed significant improvement. Recently she saw Dr. Richie Martin again at a 3 month trial of continued Mestinon has been initiated about 2 days ago. She has tried her own alternative treatment including vitamins and ?stem-cell tincture treatment.? She said she has proved that these treatments are not effective. She has noticed enlarging bilateral neck lymph nodes. Patient denies any fever or chills. Denies nausea or vomiting. Denies abdominal pain, diarrhea or constipation. Denies any weight loss. Denies night sweats. She denies cough, cold, shortness of breath, fever, or sick contacts. Her COVID-19 test was negative on 08/17. ROS: ?burning? headaches, dizziness, nausea, vomiting, Pitosis of her right eyelid, photophobia, paresthesias in her upper and lower extremities, and some swellings along the sides of her face bilaterally. Thirteen system review is otherwise negative other than as mentioned below and in HPI. PE: GENERAL: Well groomed and cooperative. Appears stated age. Answers questions promptly and appropriately. Vital signs noted. HENT: Normocephalic, atraumatic. Hearing intact. Oral mucosa is pink and moist. Soft mobile subcutaneous nodules posterior to the parotids bilaterally, consistent with enlarged lymph nodes; palpable cervical chain lymph nodes bilaterally in the neck; thyroid is normal on palpation, and nontender EYES: Conjunctiva pink, sclera white, no periorbital swelling. Right eyelid ptotic, pupils were equal round reactive to light and accommodation, no myosis noted CARDIOVASCULAR: Regular rate. Trace pedal edema bilaterally. RESPIRATORY: Non tachypneic, breathing comfortably on room air. GASTROINTESTINAL: Abdomen soft and non-distended GENITALURINARY: No flank tenderness. MUSCULOSKELETAL: Equal tone and mass bilaterally. Right lower leg has a dusky bruise with some skin changes consistent with I healing venous stasis ulcer on the medial side of the right lower leg, medially Lymph nodes: Bilateral axillary lymphadenopathy is palpable, bilateral groin lymphadenopathy is vaguely palpable, bilateral cervical lymphadenopathy is palpable SKIN: Warm, dry, soft, appropriate color for ethnicity. No other lesions, rashes, or wounds. NEURO: Alert and Oriented X 3. No gross sensory deficits, or cognitive issues. PSYCH: Appropriate affect and mood. Patient History Medical History Acne (Inactive ~1980) Allergic rhinitis (Acute) Asthma (Chronic) Carpal tunnel syndrome (Chronic) Cervical cancer (Chronic ~2012) Hip pain, right (Chronic) Splenomegaly (Acute 04/29/19) Thyroid nodule (Chronic) Varicose vein of leg (Acute) Vertigo (Acute) Surgical History Anesthesia (Resolved) History of biopsy (Acute) History of hip replacement (~03/2013) History of third molar tooth extraction Hx of lymph node biopsy (Acute 03/31/19) Status post cone biopsy of cervix (~08/2013) Family & Social History Family History Brother Age: 77 High cholesterol Mother Essential hypertension Mental health problem Sister Age: 68 Joint problem Father Cancer Grandfather Cancer Grandmother Stroke Social History: household members friend(s),none Tobacco & Substance use: Smoking Status Never smoker alcohol intake current alcohol intake frequency holiday/special occasion Substance Use Type does not use Meds Home Medications and Allergies Home Medications Medication Instructions Recorded Confirmed Type ascorbic acid (vitamin C) 500 mg 500 mg PO DAILY 03/27/19 08/21/19 History capsule Free Radical Protection 600 mg PO DAILY 04/09/19 08/21/19 History Quercetin 800 mg PO DAILY 12/19/19 05/01/20 History cholecalciferol (vitamin D3) 5,000 unit DAILY 04/09/19 08/21/19 History [Vitamin D3] montelukast 10 mg tablet 10 mg PO DAILY #90 tab 06/12/19 08/21/19 Rx pyridostigmine bromide 60 mg PO TID 07/09/19 08/21/19 History amlodipine 5 mg tablet 10 mg PO DAILY #180 tab 08/19/19 08/21/19 Rx Allergies Allergy/AdvReac Type Severity Reaction Status Date / Time lisinopril AdvReac Intermediate cough Verified 08/21/19 08:17 Exam Vital Signs (past 8 hours): - 08/21/19 08:22 Temperature 98.5 F Pulse Rate 76 Respiratory Rate 17 Blood Pressure 141/92 H Pulse Oximetry 98 Oxygen Delivery Method Room Air Objective Imaging CT scan - abdomen: My impression: PET CT with bilateral cervical and thoracic lymphadenopathy Assessment & Plan Assessment and plan (1) Myasthenia gravis: Current visit: No Status: Acute (2) CLL (chronic lymphocytic leukemia): Current visit: No Status: Acute (3) Lymphoma, small lymphocytic: Current visit: No Status: Acute (4) Goiter, unspecified: Current visit: No Status: Acute (5) Allergic rhinitis: Current visit: No Status: Acute (6) Lymphadenopathy of head and neck: Current visit: No Status: Acute Assessment & Plan narrative: This is a 58-year-old woman with CLL, in need of a Port-A-Cath for chemotherapy treatment. Risks and benefit of Port-A-Cath placement were discussed including risk of bleeding, infection, damage to nearby structures, pneumothorax, port migration, port infection, port thrombosis, need for additional procedures. The patient desires to proceed with her Port-A-Cath placement. Plan: Proceed to OR for Port-A-Cath placement COVID-19 COVID-19 status: Negative Time Spent With Patient Time with patient: 25 - 35 minutes Quality VTE Deep Vein Thrombosis/Pulmonary Embolism Present on Admission: No
[2019-08-21] MEDS: CEFAZOLIN 2 GM/100 ML FROZ.PIGGY IV (10:12)
--- NOTE | 2019-08-21 10:40 | SUR.OPER ---
Supine on padded OR bed, head on pillow, right arm padded and tucked at side, legs uncrossed, safety belt at thigh, tape over blanket over lower legs .
[2019-08-21] MEDS: BUPIVACAINE 0.25% W/ EPI 30 ML VIAL INJ (10:48)
[2019-08-21] MEDS: HEPARIN 5,000 UNIT, SODIUM CHLORIDE 0.9% 50 ML IV (10:49)
--- NOTE | 2019-08-21 11:22 | PM.OP.1 ---
Operative Date/Time/Diagnoses Date of procedure: 08/21/19 Time of procedure: 11:22 Pre-op diagnosis: lymphoma, in need of portacath Post-op diagnosis: same Procedure & Clinicians Procedure: right IJ portacath placement Same procedure as scheduled: Yes Surgeon: Meredith Motta Anesthesia Type: General Operative Notes Prosthetic devices, grafts, tissues, transplants, or devices: BARD powerport Estimated Blood Loss (mL): 10 Procedure in detail: The patient was placed supine on the operating room table and underwent general LMA anesthesia. A towel roll was placed between her shoulders. The neck and chest were prepped and draped in the usual sterile fashion. The patient was positioned in Trendelenburg, and local anesthetic was infiltrated beneath the skin overlying the right IJ. The right neck was examined with ultrasound, and an appropriate position on the internal jugular vein was identified. The right IJ was accessed with a large-bore needle and syringe using simultaneous ultrasound guidance. Dark blood returned indicating venous access, and the guidewire was passed smoothly through the needle. Fluoroscopy was used to identify the position of the guidewire, which was in the SVC. A 2 cm transverse incision was then made in the skin on the right chest wall and a 2 cm x 2 cm pocket was created inferior to the incision. The port was put together and flushed with heparinized saline. It was positioned in the pocket, and the tunneler was used to tunnel the catheter up to the jugular vein. A skin incision was made over top of the guide wire, and the dilator and introducer sheath were passed over the wire using fluoro guidance. The wire and dilator were then removed and the sheath was left in place. The catheter was cut to the appropriate length after evaluating its length using fluoro with the catheter positioned on the patient's chest. Once it was tapered to appropriate length the catheter was passed through the introducer and then the sheath was peeled away. Again using fluoro guidance, the catheter tip appeared to be in good position within the superior vena cava at the cavoatrial junction. The port was fixed to the chest wall using 3 0 silk suture through the two suture holes in the port. The skin was closed with 3 0 Vicryl and 4 0 Monocryl, and the skin incisions were sealed with Dermabond. The Port-A-Cath was accessed through the skin using a Yu needle and was found to flush well and draw back blood. It was flushed with 10cc of heparinized saline. This concluded the procedure and the patient was awakened from anesthesia and transferred to the postanesthesia care unit in stable condition. Needle sponge and instrument counts were correct x2 at the end of the case. The patient tolerated the procedure well and was transferred to the PACU in stable condition. Complications: none Post-operative Condition: stable Disposition: PACU Plan for aftercare: post op CXR shows no pneumothorax and tip of catheter at cavoatrial junction
[2019-08-21 11:26] VITALS: BP 135/73; BP 137/73; PULSE 88; PULSE 89; RESP 12; RESP 13; TEMP 36.2; O2SAT 95; O2SAT 98
[2019-08-21 11:31] VITALS: BP 139/83; PULSE 88; RESP 18; O2SAT 94
[2019-08-21 11:36] VITALS: BP 142/76; PULSE 82; RESP 15; O2SAT 98
[2019-08-21 11:52] VITALS: BP 134/76; PULSE 84; RESP 10; O2SAT 97
[2019-08-21 12:15] VITALS: BP 140/90; PULSE 88; RESP 12; TEMP 36.8; O2SAT 95
--- NOTE | 2019-08-21 12:24 | SUR.PHASEII ---
Planning for discharge, Ride notified. Independently dressing.
== END 2019-08-21 12:17 | disposition home or self-care (01) ==
PROVIDERS: Family Provider Nurse Practitioner; PCP Family Medicine; Referring Provider Surgery; Visit Provider Surgery
PROC: (CPT 36561; principal; 2019-08-21 11:15)
DX: C91.10 Chronic lymphocytic leukemia of B-cell type not having achieved remission (principal); G70.00 Myasthenia gravis without (acute) exacerbation; E04.9 Nontoxic goiter, unspecified; R59.1 Generalized enlarged lymph nodes; Z45.2 Encounter for adjustment and management of vascular access device
CPT/HCPCS: 36561; 71045; 76000; C1788; J0690; J1100; J1644; J2405; J2704; J3010

== ENCOUNTER → 2020-03-04 16:05 | Outpatient (CLI) | payer OTHER, SELFPAY ==
[2020-03-04 16:46] LABS: COVID19 -Nasal RAPID Negative (Negative)
== END ==
PROVIDERS: Family Provider Nurse Practitioner; PCP Family Medicine; Visit Provider Family Medicine
DX: R05 Cough (principal)
CPT/HCPCS: 87635

== ENCOUNTER → 2020-03-23 07:39 | Outpatient (CLI) | payer OTHER, SELFPAY ==
--- NOTE | 2020-03-23 07:41 | DI.RAD.S_ITS ---
PROCEDURE: XR CHEST 2V INDICATIONS: Cough and shortness of breath x3 months TECHNIQUE: 2 views of the chest were acquired. COMPARISON: [facility], CR, XR CHEST 1V, 08/21/2019, 11:24. [facility], CR, XR CHEST 2V, 03/27/2019, 15:58. FINDINGS: Surgical changes and devices: There is a Port-A-Cath from right-sided approach extending into the atrial caval junction or superior right atrium.. Lungs and pleura: Lungs are abnormal with a bilateral lung base alveolar infiltration pattern, and elevation of the left hemidiaphragm. No pleural effusions or pneumothorax. Mediastinum: Mediastinal contours are normal. Heart size is normal. Bones and chest wall: No suspicious bony abnormalities. Soft tissues appear unremarkable. IMPRESSION: Bibasilar pneumonia pattern, new finding of elevation of the left hemidiaphragm. This was not present in August of this year. Port-A-Cath from right-sided approach extends into the atrial caval junction or right atrium. Dictated by: Sascha Rivas M.D. on 03/23/2020 at 9:05 Approved by: Sascha Rivas M.D. on 03/23/2020 at 9:06
== END ==
PROVIDERS: Family Provider Nurse Practitioner; PCP Family Medicine; Referring Provider Family Medicine; Visit Provider Family Medicine
DX: J45.901 Unspecified asthma with (acute) exacerbation (principal); R05 Cough; R06.02 Shortness of breath; Z95.828 Presence of other vascular implants and grafts
CPT/HCPCS: 71046

== ENCOUNTER → 2020-06-14 09:05 | Outpatient (CLI) | payer OTHER, SELFPAY ==
[2020-06-14 10:37] LABS: COVID19 -Nasal RAPID Negative (Negative)
== END ==
PROVIDERS: Family Provider Nurse Practitioner; PCP Family Medicine; Visit Provider Surgery
DX: Z01.812 Encounter for preprocedural laboratory examination (principal); Z20.822 Contact with and (suspected) exposure to COVID-19
CPT/HCPCS: 87635; C9803

== ENCOUNTER 2020-06-15 07:50 | Day surgery (SDC) | payer OTHER, SELFPAY ==
[2020-06-15] VITALS (9 sets, daily range): BP systolic 77–159; BP diastolic 34–89; PULSE 69–75; RESP 12–18; TEMP 36.1–36.9; O2SAT 92–97; BMI 32.9
[2020-06-15] MEDS: LACTATED RINGERS 1,000 ML 42 ML IV (08:30)
--- NOTE | 2020-06-15 10:32 | PM.HP.1 ---
History of Present Illness History of Present Illness Date Patient Seen: 08/21/19 Time Patient Seen: 10:10 Chief complaint: REMOVE PORT-A-CATH Narrative: This is a 59-year-old woman lymphoma diagnosed in March of 2019. She has been treated by Medical Oncology, and is now stable enough to avoid further IV treatment, and will need her Port-A-Cath removed. She denies any new medical problems since she was last seen, and is otherwise in good health. ROS: Thirteen system review is otherwise negative other than as mentioned below and in HPI. PE: GENERAL: Alert, comfortable. Appears stated age. Answers questions promptly and appropriately. Vital signs noted. EYES: Conjunctiva pink, sclera white, no periorbital swelling. CARDIOVASCULAR: Regular rate. Trace pedal edema bilaterally. Chest: Port-A-Cath incisional scar is well-healed, Port-A-Cath is palpable under the skin, and the tubing is palpable in the neck, and appears mobile and noncalcified RESPIRATORY: Non tachypneic, breathing comfortably on room air. GASTROINTESTINAL: Abdomen soft and non-distended GENITALURINARY: No flank tenderness. MUSCULOSKELETAL: Equal tone and mass bilaterally. SKIN: Warm, dry, soft, appropriate color for ethnicity. No other lesions, rashes, or wounds. NEURO: Alert and Oriented X 3. No gross sensory deficits, or cognitive issues. PSYCH: Appropriate affect and mood. Patient History Medical History Acne (~1980) Allergic rhinitis Asthma Carpal tunnel syndrome Cervical cancer (~2012) Hip pain, right History of seizure Lymph node enlargement Malaise and fatigue Obesity Pain and swelling of right lower extremity Palpitations Poor appetite Postmenopausal Ptosis of eyelid, right Shortness of breath Splenomegaly (04/29/19) Thyroid nodule Varicose vein of leg Vertigo Vision changes Surgical History Anesthesia History of biopsy History of hip replacement (~03/2013) History of third molar tooth extraction Hx of lymph node biopsy (03/31/19) Status post cone biopsy of cervix (~08/2013) Family & Social History Family History Brother Age: 78 High cholesterol Mother Essential hypertension Mental health problem Sister Age: 69 Joint problem Father Cancer Grandfather Cancer Grandmother Stroke Social History: household members friend(s),none Tobacco & Substance use: Smoking Status Never smoker alcohol intake current alcohol intake frequency holiday/special occasion Substance Use Type does not use Meds Home Medications and Allergies Home Medications Medication Instructions Recorded Confirmed Type ascorbic acid (vitamin C) 500 mg 1,000 mg PO DAILY 03/27/19 06/15/20 History capsule Free Radical Protection 600 mg PO DAILY 04/09/19 06/15/20 History cholecalciferol (vitamin D3) 5,000 unit PO DAILY 09/21/19 06/15/20 History amlodipine 10 mg tablet 10 mg PO DAILY #90 tab 01/06/20 06/15/20 Rx escitalopram oxalate 10 mg tablet 10 mg PO DAILY #90 tab 01/06/20 06/15/20 Rx montelukast 10 mg tablet 10 mg PO DAILY #90 tab 02/17/20 06/15/20 Rx albuterol sulfate 90 mcg/actuation 2 puff INHALATION QID PRN #8.5 gram 03/07/20 06/15/20 Rx aerosol inhaler turmeric mg PO 05/16/20 History zinc 15 mg PO DAILY 05/16/20 05/16/20 History Allergies Allergy/AdvReac Type Severity Reaction Status Date / Time lisinopril AdvReac Mild Cough Verified 06/15/20 08:48 Exam Vital Signs (past 8 hours): - 06/15/20 08:13 Temperature 98.4 F Pulse Rate 74 Respiratory Rate 18 Blood Pressure 159/88 H Pulse Oximetry 97 Oxygen Delivery Method Room Air Assessment & Plan Assessment and plan (1) Port-A-Cath in place: Status: Acute (2) Obesity: Qualifiers: Obesity type: due to excess calories Obesity classification: adult class 1 (BMI 30 - 34.9) Serious obesity comorbidity presence: without serious comorbidity Body mass index: BMI 34.0-34.9 Qualified Code(s): E66.09 - Other obesity due to excess calories; Z68.34 - Body mass index [BMI] 34.0-34.9, adult Status: Acute (3) Lymphoma, small lymphocytic: Status: Acute (4) CLL (chronic lymphocytic leukemia): Status: Chronic Assessment & Plan narrative: Risks and benefits of Port-A-Cath removal were discussed with the patient including risk of bleeding, infection, damage to nearby structures, retained foreign body, need for additional procedures, need for transfer to a tertiary center, scarring. The patient desires to proceed with Port-A-Cath removal. COVID-19 COVID-19 status: Negative Result date/Date tested (Pos, Neg/Pending): 06/14/20 Time Spent With Patient Time with patient: 15-24 minutes Quality VTE Deep Vein Thrombosis/Pulmonary Embolism Present on Admission: No
[2020-06-15] MEDS: CEFAZOLIN 2 GM/100 ML FROZ.PIGGY IV (10:40)
[2020-06-15] MEDS: BUPIVACAINE 0.25% (PF) VIAL 30 ML INJ (11:02)
[2020-06-15] MEDS: EPINEPHrine 1 MG/ML 0.15 MG SUBCUT (11:03)
--- NOTE | 2020-06-15 11:16 | PM.OP.1 ---
Operative Date/Time/Diagnoses Date of procedure: 06/15/20 Time of procedure: 11:16 Pre-op diagnosis: Portacath in place Post-op diagnosis: same Procedure & Clinicians Procedure: Port-A-Cath removal Same procedure as scheduled: Yes Indications: completed IV chemotherapy. Surgeon: Meredith Motta Anesthesia Type: General Operative Notes Findings: Portacath intact Specimen(s): other (portacath for gross only) Estimated Blood Loss (mL): 1 Procedure in detail: Patient was placed supine on the operating room table and underwent general LMA anesthesia. Appropriate preoperative antibiotics were given. The neck and chest were prepped and draped in the usual fashion except.Local anesthetic was infiltrated beneath the skin overlying the portacath site. A 1.5cm ncision was made in the skin overlying the port site, carried down to the Port-A-Cath. Port-A-Cath was freed from the surrounding scar tissue, and removed from the chest intact with both the hub and the catheter in one piece. Hemostasis was achieved, the remaining scarred capsule around the portacath was excised. The skin was closed with 3-0 Vicryl and 4-0 Monocryl with dermabond sealing thes kin. This concluded the procedure and the patient was awakened from anesthesia and transferred to the postanesthesia care unit in stable condition. Needle sponge and instrument counts were correct x2 at the end of the case. The patient tolerated the procedure well and was transferred to the PACU in stable condition. Complications: none Post-operative Condition: stable Disposition: PACU
== END 2020-06-15 12:10 | disposition home or self-care (01) ==
PROVIDERS: Family Provider Nurse Practitioner; PCP Family Medicine; Referring Provider Family Medicine; Visit Provider Surgery
PROC: (CPT 36590; principal; 2020-06-15 09:15)
DX: Z45.2 Encounter for adjustment and management of vascular access device (principal); C83.00 Small cell B-cell lymphoma, unspecified site; E66.09 Other obesity due to excess calories; Z68.34 Body mass index [BMI] 34.0-34.9, adult
CPT/HCPCS: 36590; 82962; J0171; J0690; J2250; J2704; J3010

== ENCOUNTER → 2020-08-22 08:42 | Outpatient (CLI) | payer OTHER, SELFPAY ==
[2020-08-23 11:21] LABS: Fecal Immunochemical Test Negative (Negative)
== END ==
PROVIDERS: Family Provider Nurse Practitioner; PCP Family Medicine; Referring Provider Family Medicine; Visit Provider Family Medicine
DX: Z12.4 Encounter for screening for malignant neoplasm of cervix (principal)
CPT/HCPCS: 82274

== ENCOUNTER → 2020-09-27 07:47 | Outpatient (CLI) | payer OTHER, SELFPAY ==
[2020-09-27 08:29] LABS: COVID19 -Nasal RAPID Negative (Negative)
== END ==
PROVIDERS: Family Provider Nurse Practitioner; PCP Family Medicine; Visit Provider Obstetrics & Gynecology
DX: Z01.812 Encounter for preprocedural laboratory examination (principal); Z20.822 Contact with and (suspected) exposure to COVID-19
CPT/HCPCS: 87635

== ENCOUNTER 2020-09-27 08:36 | Day surgery (SDC) | payer OTHER, SELFPAY ==
[2020-09-23 09:11] VITALS: BMI 35.0
[2020-09-27] VITALS (8 sets, daily range): BP systolic 111–149; BP diastolic 68–91; PULSE 68–72; RESP 14–18; TEMP 36.2–36.8; O2SAT 95–98; BMI 34.7
--- NOTE | 2020-09-27 | PATH_ITS ---
[facility] Accession Number: [id number] . 01 Material submitted: . PART A: endocervix - ENDOCERVICAL CURETTINGS AND BRUSHING PART B: endometrium - ENDOMETRIAL CURETTINGS . 01 Clinical history: . FRACTIONAL D/C HYSTEROSCOPY . 02 Diagnosis: A. Endocervical Curettings and Brushing: Rare strips of endocervical glandular epithelium; negative for glandular dysplasia or malignancy. Strips of glandular epithelium, favor origin from lower uterine segment / endometrium; negative for glandular hyperplasia, cytologic atypia or malignancy. . B. Endometrial Curettings: Avulsed portions of squamous mucosa with no significant histomorphologic abnormality. Scant fragments of weakly proliferative endometrial tissue; negative for glandular hyperplasia, cytologic atypia, or malignancy. MRV 09/30/2020 1228 Local . 02 Comment: . . 02 Electronically signed: . Alisa Sweeney MD, Pathologist NPI- [id number] . 01 Gross description: . Part A: ENDOCERVICAL CURETTINGS AND BRUSHING: Received in formalin are minute fragments of mucoid and hemorrhagic material measuring 3.5 x 2.0 x 0.2 cm in aggregate. Submitted in toto in 1 cassette. Part B: ENDOMETRIAL CURETTINGS: Received in formalin are minute fragments of mucoid and hemorrhagic material measuring 2.0 x 1.4 x 0.1 cm in aggregate. Submitted in toto in 1 cassette. /MAE 09/28/2020 1259 Local . 02 Pathologist provided ICD-10: R87.619 . 02 CPT . 054175, [id number] Performed at: 01 [facility] [address] [place] [address] [address], [place], [place] [id number] MD Thiago Bautista MD Phone: [phone] Performed at: 02 [facility] [id number] [place] [id number] MD Yoselin Manriquez MD Phone: [phone]
[2020-09-27] MEDS: ACETAMINOPHEN 325 MG TABLET 975 MG PO (08:57)
[2020-09-27] MEDS: LACTATED RINGERS 1,000 ML 100 ML IV (08:58)
--- NOTE | 2020-09-27 09:24 | P.HP_ITS ---
History of Present Illness History of Present Illness Date Patient Seen: 09/27/20 Time Patient Seen: 09:24 Chief complaint: FRACTIONAL D&C HYSTEROSCOPY Narrative: Patient is a 59-year-old 1 para 1 who presents for a fractional D&C hysteroscopy due to COOKIE ON PAP, PREVIOUS HISTORY OF ADENOCARCINOMA IN SITU OF THE CERVIX, AND A STENOTIC CERVIX. Patient History Medical History (Updated 08/22/20 @ 08:49 by Yulissa Strauss MD) Acne (~1980) Adenocarcinoma in situ (AIS) of uterine cervix Allergic rhinitis Asthma Carpal tunnel syndrome Cervical cancer (~2012) Hip pain, right History of seizure Lymph node enlargement Malaise and fatigue Obesity Pain and swelling of right lower extremity Palpitations Poor appetite Postmenopausal Ptosis of eyelid, right Shortness of breath Splenomegaly (04/29/19) Thyroid nodule Varicose vein of leg Vertigo Vision changes Surgical History (Updated 09/23/20 @ 09:20 by Gricelda Betancourt RN) Anesthesia History of biopsy History of hip replacement (~03/2013) History of removal of Port-a-Cath (06/15/20) History of third molar tooth extraction Hx of lymph node biopsy (03/31/19) Status post cone biopsy of cervix (~08/2013) Family & Social History Family History Brother Age: 78 High cholesterol Mother Essential hypertension Mental health problem Sister Age: 69 Joint problem Father Cancer Grandfather Cancer Grandmother Stroke Social History: household members none Tobacco & Substance use: Smoking Status Never smoker alcohol intake current alcohol intake frequency a few times a month Substance Use Type does not use Meds Home Medications and Allergies Home Medications Medication Instructions Recorded Confirmed Type ascorbic acid (vitamin C) 500 mg 1,000 mg PO DAILY 03/27/19 09/27/20 History capsule Free Radical Protection 600 mg PO DAILY 04/09/19 09/27/20 History cholecalciferol (vitamin D3) 5,000 unit PO DAILY 09/21/19 09/27/20 History montelukast 10 mg tablet 10 mg PO DAILY #90 tab 02/17/20 09/27/20 Rx albuterol sulfate 90 mcg/actuation 2 puff INHALATION QID PRN #8.5 gram 03/07/20 09/23/20 Rx aerosol inhaler turmeric mg PO 05/16/20 08/22/20 History zinc 15 mg PO DAILY 05/16/20 09/27/20 History amlodipine 10 mg tablet See Rx Instructions .ROUTE 09/06/20 09/27/20 Rx .COMPLEX #90 tab escitalopram oxalate 10 mg tablet See Rx Instructions .ROUTE 09/06/20 09/27/20 Rx .COMPLEX #90 tab Allergies Allergy/AdvReac Type Severity Reaction Status Date / Time lisinopril AdvReac Mild Cough Verified 09/27/20 08:53 Exam Vital Signs (past 8 hours): - 09/27/20 08:59 Temperature 98.3 F Pulse Rate 71 Respiratory Rate 14 Blood Pressure 149/90 H Pulse Oximetry 98 Oxygen Delivery Method Room Air Narrative Exam Narrative: HEENT: No thyromegaly, no anterior cervical or supraclavicular lymphadenopathy. Lungs:Clear to auscultation bilaterally, no wheezes. Cardiovascular: Regular rate and rhythm, no murmurs, rubs, or gallops. Abdomen: No scars. No hepatosplenomegaly. No masses palpable. External genitalia: Normal Vagina: Normal Cervix: Stenotic Bimanual exam: 5 Week size uterus. Mobile. No adnexal masses or tenderness . Assessment & Plan Assessment & Plan narrative: Assessment: 59-year-old 1 para 1 with COOKIE on Pap, history of adenocarcinoma in situ of the cervix, and stenotic cervix Plan: Fractional D&C hysteroscopy The risks, benefits, and alternatives to the procedure were explained to the patient. The risks including bleeding, infection, and uterine perforation. She understands these risks and agrees to proceed. A full par Q was held and conse nt form was signed. COVID-19 COVID-19 status: Negative Result date/Date tested (Pos, Neg/Pending): 09/27/20 Time Spent With Patient Time with patient: less than 15 minutes
--- NOTE | 2020-09-27 09:27 | PM.PREOP ---
Pre-operative Note COVID-19 COVID-19 status: Negative Result date/Date tested (Pos, Neg/Pending): 09/26/20 Interval Note History & Physical reviewed/Exam performed by Physician: Yes Changes to H&P: No H&P completed within 30 days and has changed as indicated here:: 09/27/20
--- NOTE | 2020-09-27 09:51 | SUR.OPER ---
Lithotomy on padded OR bed, head on pillow, arms secured on padded arm boards at <90 degrees abduction. Legs secured in padded yellow fins stirrups.
--- NOTE | 2020-09-27 10:39 | PM.GYNOP.1 ---
Operative Date/Time/Diagnoses Date of procedure: 09/27/20 Time of procedure: 10:39 Pre-op diagnosis: COOKIE on Pap Previous history of adenocarcinoma in situ of the cervix Cervical stenosis Post-op diagnosis: same Procedure & Clinicians Procedure: Procedures Operation Date: 09/27/20 09:45 Actual Procedures Side Surgeon p Tawanna D&C w/ Hysteroscopy Yulissa Strauss MD Indications: COOKIE on Pap History of adenocarcinoma in situ of the cervix Cervical stenosis Surgeon: Yulissa Strauss Anesthesia Type: General (LMA) Operative Notes Findings: Stenotic cervical os at the distal cervix Both fallopian tube ostia observed Normal endocervical canal and endometrial canal Closure Type: not applicable Specimen(s): endometrial curettings and other (Endocervical curetting) Estimated blood loss (mL): 5 Blood products transfused: none Procedure in detail: After informed consent was obtained, the patient was taken to the operating room where she was placed in the dorsal supine position. After adequate LMA general anesthesia was achieved, she was placed in the dorsal lithotomy position, and prepped and draped in the usual sterile fashion. A time-out was performed. A bivalve speculum was placed into the vagina and the anterior lip of the cervix was grasped with a single-tooth tenaculum. An attempt was made to dilate the endocervical canal. The upper portion of the endocervical canal was stenotic. Using the very small gold handled dilators, the endocervical canal was carefully dilated to the # 8 Hegar dilator. Sharp curettage of the cervical canal was performed including the upper portion. The hysteroscope passed easily into the endometrial cavity. Both fallopian tube ostia were observed. The hysteroscope was removed from the uterus. Sharp curettage was performed of the endometrial canal and a moderate amount of tissue was obtained. The instruments were removed from the uterus. The single-tooth tenaculum was removed from the anterior lip of the cervix. The bivalve speculum was removed from the vagina. Sponge, lap, and instrument counts were correct x2. The patient tolerated the procedure well, and was taken to PACU in stable condition. Complications: none Post-operative Condition: stable Disposition: PACU Plan for aftercare: Home after recovery
[2020-09-27] MEDS: KETOROLAC 30 MG/ML VIAL IV (10:56)
== END 2020-09-27 11:50 | disposition home or self-care (01) ==
PROVIDERS: Family Provider Nurse Practitioner; PCP Family Medicine; Referring Provider Obstetrics & Gynecology; Visit Provider Obstetrics & Gynecology
PROC: 0UDB8ZZ Extraction of Endometrium, Via Natural or Artificial Opening Endoscopic (ICD-10-PCS; CPT 58558; principal; 2020-09-27 09:45)
DX: R87.619 Unspecified abnormal cytological findings in specimens from cervix uteri (principal); N88.2 Stricture and stenosis of cervix uteri; Z85.41 Personal history of malignant neoplasm of cervix uteri; Z86.001 Personal history of in-situ neoplasm of cervix uteri; I10 Essential (primary) hypertension; J45.909 Unspecified asthma, uncomplicated; F41.9 Anxiety disorder, unspecified; E66.9 Obesity, unspecified; Z68.38 Body mass index [BMI] 38.0-38.9, adult
CPT/HCPCS: 58558; J1100; J1885; J2250; J2405; J2704

== ENCOUNTER → 2022-11-14 09:29 | Outpatient (CLI) | payer OTHER, SELFPAY ==
[2022-11-14 12:26] LABS: Cholesterol 139 mg/dL (140-199); HDL Cholesterol 49 mg/dL (40-60); LDL Cholesterol Calculated 79 mg/dL (<100); Triglycerides 54 mg/dL (35-150)
[2022-11-14 16:03] LABS: Creatinine Urine Random 73.8 mg/dL
[2022-11-14 16:09] LABS: Microalbumin Urine Random < 0.6 mg/dL (0-1.6)
== END ==
PROVIDERS: Family Provider Nurse Practitioner; PCP Family Medicine; Referring Provider Family Medicine; Visit Provider Family Medicine
DX: E78.5 Hyperlipidemia, unspecified (principal); D69.6 Thrombocytopenia, unspecified; I10 Essential (primary) hypertension; R87.619 Unspecified abnormal cytological findings in specimens from cervix uteri; R87.810 Cervical high risk human papillomavirus (HPV) DNA test positive
CPT/HCPCS: 36415; 80061; 82043; 82570

== ENCOUNTER → 2023-03-05 07:33 | Outpatient (CLI) | payer OTHER, SELFPAY | PROVIDERS: Family Provider Nurse Practitioner; PCP Family Medicine; Visit Provider Student in an Organized Health Care Education/Training Program | DX: R05.9 Cough, unspecified (principal) | CPT/HCPCS: 87070 ==

== ENCOUNTER → 2023-03-11 07:53 | Outpatient (CLI) | payer OTHER, SELFPAY ==
--- NOTE | 2023-03-11 07:54 | DI.RAD.S_ITS ---
PROCEDURE: XR CHEST 2V INDICATIONS: Cough TECHNIQUE: 2 views of the chest were acquired. COMPARISON: [facility], CR, XR CHEST 2V, 03/23/2020, 7:44. [facility], CR, XR CHEST 1V, 08/21/2019, 11:24. FINDINGS: Surgical changes and devices: None. Lungs and pleura: Lungs are clear. No pleural effusions or pneumothorax. Mediastinum: Mediastinal contours are normal. Heart size is normal. Bones and chest wall: No suspicious bony abnormalities. Soft tissues appear unremarkable. IMPRESSION: No acute cardiopulmonary abnormality is seen. Dictated by: Chris Humphries M.D. on 03/11/2023 at 10:48 Approved by: Chris Humphries M.D. on 03/11/2023 at 10:49
== END ==
PROVIDERS: Family Provider Nurse Practitioner; PCP Family Medicine; Referring Provider Nurse Practitioner Family; Visit Provider Nurse Practitioner Family
DX: R05.9 Cough, unspecified (principal)
CPT/HCPCS: 71046

== ENCOUNTER → 2024-06-10 08:35 | Outpatient (CLI) | payer OTHER, SELFPAY | PROVIDERS: Family Provider Nurse Practitioner; PCP Family Medicine; Visit Provider Student in an Organized Health Care Education/Training Program | DX: S81.801A Unspecified open wound, right lower leg, initial encounter (principal) | CPT/HCPCS: 87070; 87205 ==

== ENCOUNTER → 2024-07-01 08:03 | Outpatient (CLI) | payer OTHER, SELFPAY | PROVIDERS: Family Provider Nurse Practitioner; PCP Family Medicine; Referring Provider Student in an Organized Health Care Education/Training Program; Visit Provider Surgery | DX: L97.812 Non-pressure chronic ulcer of other part of right lower leg with fat layer exposed (principal); I87.311 Chronic venous hypertension (idiopathic) with ulcer of right lower extremity | CPT/HCPCS: 11042; 29581; 87070; 87075; 87205; 99203; 99213 ==

== ENCOUNTER → 2024-07-06 10:56 | Outpatient (CLI) | payer OTHER, SELFPAY | PROVIDERS: Family Provider Nurse Practitioner; PCP Family Medicine; Referring Provider Family Medicine; Visit Provider Surgery | DX: I87.2 Venous insufficiency (chronic) (peripheral) (principal); L97.812 Non-pressure chronic ulcer of other part of right lower leg with fat layer exposed | CPT/HCPCS: 29581 ==

== ENCOUNTER → 2024-07-13 07:35 | Outpatient (CLI) | payer OTHER, SELFPAY ==
--- NOTE | 2024-07-13 07:36 | DI.US.S_ITS ---
PROCEDURE: US VENOUS INSUFFICIENCY LTD INDICATIONS: venous ulcer on right lower leg TECHNIQUE: Real time scanning was performed of the lower extremity venous system, with imaging documentation, as well as Color and pulse Doppler interrogation. COMPARISON: None. FINDINGS: RIGHT LOWER EXTREMITY: The deep veins are normally compressible, and free of intraluminal thrombus. Color and pulse Doppler demonstrate deep venous reflux within the common femoral vein. There is otherwise normal augmentation with distal compression maneuver. Greater saphenous vein (GSV): Normally 4 mm or less in diameter, with any reflux less than 0.5 seconds. Saphenofemoral junction (SFJ): 8 mm. 3.4 seconds of reflux. Proximal GSV: 1.4 mm. 3.6 seconds of reflux. Mid GSV: 8 mm. 1.1 seconds of reflux. Distal GSV: 1.1 mm. 2.3 seconds of reflux. Calf GSV: 1.0 mm, and < 2.5 seconds of reflux Anterior accessory GSV (AAGSV): Not seen. Small saphenous vein (SSV): Competent. IMPRESSION: 1. Incompetent deep and superficial venous system as described above. Dictated by: Zak Cohen M.D. on 07/13/2024 at 12:24 Approved by: Zak Cohen M.D. on 07/13/2024 at 12:28
== END ==
PROVIDERS: Family Provider Nurse Practitioner; PCP Family Medicine; Referring Provider Surgery; Visit Provider Surgery
DX: I87.311 Chronic venous hypertension (idiopathic) with ulcer of right lower extremity (principal); L97.812 Non-pressure chronic ulcer of other part of right lower leg with fat layer exposed; I86.8 Varicose veins of other specified sites
CPT/HCPCS: 93971

== ENCOUNTER → 2024-07-13 09:18 | Outpatient (CLI) | payer OTHER, SELFPAY ==
--- NOTE | 2024-07-13 | OV.WND_ITS ---
PROGRESS NOTE DETAILS PATIENT NAME: CARLOS ALBERTS PATIENT NUMBER: [id number] CLINICIAN: MIA BLANK PATIENT DATE OF : 1960 PHYSICIAN / HIDE AND SKIN PROCESSING WORKER: DHARMESH WILTONCASANDRA PATIENT SUBJECTIVE CHIEF COMPLAINT THIS INFORMATION WAS OBTAINED FROM THE PATIENT. NO ISSUES ALLERGIES LISINOPRIL (SEVERITY: MILD, REACTION: COUGH) HPI THIS INFORMATION WAS OBTAINED FROM THE PATIENT. THE FOLLOWING HPI ELEMENTS WERE DOCUMENTED FOR THE PATIENT'S WOUND: LOCATION: [facility] DURATION: 02/21/24 CONTEXT: VENOUS THE PATIENT IS A 63-YEAR-OLD FEMALE WITH CLL AND VARICOSE VEINS WHO RETURNS TODAY FOR FOLLOW UP OF AN ULCER ON THE RIGHT LEG. THE PATIENT WAS SEEN FOR THE 1ST TIME ON JULY 01, 2024 AND STARTED ON DRESSING CHANGES WITH HYDROFERA BLUE WITH TWO-LAYER LIGHT COMPRESSION AND TRIAMCINOLONE TO THE PERIWOUND SKIN. SHE REPORTS OCCASIONAL PAIN ASSOCIATED WITH THE ULCER. SHE HAS NOT HAD ANY SIGNIFICANT LOWER EXTREMITY SWELLING NOR HAS SHE HAD ANY FEVER OR CHILLS. SHE HAS NOT HAD ANY ANTIBIOTIC THERAPY. THE PATIENT HAS HAD AN ULCER IN THE SAME LOCATION IN THE PAST. SHE REPORTS A GOOD APPETITE AND IS TAKING VITAMIN IS AND PROTEIN SUPPLEMENTS. SHE DENIES HAVING ANY OTHER RECENT CHANGES IN HER OVERALL HEALTH. NO PRIOR HISTORY OF DVT. THE PATIENT IS VERY ACTIVE AND HER JOB REQUIRES HER TO STAND ALL DAY. NO CIGARETTE USE. ABIS WERE 1.27 ON THE RIGHT AND 1.29 ON THE LEFT. ON EXAM TODAY MEASUREMENTS ARE UNCHANGED BUT TISSUE QUALITY IS IMPROVED AND THERE IS LESS PERIWOUND INFLAMMATION. LABS: 07/01/24: CULTURE GREW SCANT GROWTH MIXED SKIN KAMRAN 06/10/24: CULTURE RIGHT LEG ULCER GREW LIGHT GROWTH MIXED SKIN KAMRAN MEDICAL HISTORY THIS INFORMATION WAS OBTAINED FROM THE CHART, PATIENT. PATIENT HAS A MEDICAL HISTORY OF: ADENOCARCINOMA IN SITU (AIS) OF UTERINE CERVIX (DX 2018) POST MENOPAUSAL POOR APPETITE MALAISE AND FATIGUE OBESITY SPLENOMEGALY (DENIES) CARLOS ALBERTS [id number] 1960 ALLERGIC RHINITIS PTOSIS OF EYE LID, RIGHT LYMPH NOTE ENLARGMENT ASTHMA HIP PAIN, RIGHT CARPAL TUNNEL SYNDROME THYROID NODULE CERVICAL CANCER (2012(ADNORMAL CELLS)) VARICOSE VEIN OF LEG PAIN AND SELLING OF RIGHT LOWER EXTREMITY CLL (2019 CHEMO) ADDITIONAL INFORMATION DOES PATIENT HAVE A HISTORY OF CANCER? YES? COMPLETE ALL QUESTIONS.: YES LOCATION OF CANCER: CLL CHEM IN 2019 SURGICAL HISTORY THIS INFORMATION WAS OBTAINED FROM THE CHART, PATIENT. PATIENT HAS A SURGICAL HISTORY OF: HISTORY OF REMOVAL OF [id number]- HX OF LYMPH NOTE BIOPSY- HISTORY OF BIOPSY- HISTORY OF THIRD MOLAR TOOTH EXTRACTION- STATUS POST CONE BIOPSY OF CERVIX- (2012) HISTORY OF HIP REPLACEMENT- (2013) OBJECTIVE VITALS HEIGHT/LENGTH: 66 IN (167.64 CM), WEIGHT: 239.3 LBS (108.77 KGS), BMI: 38.6, TEMPERATURE: 98.4 ?F (36.89 ?C), PULSE: 76 BPM, RESPIRATORY RATE: 16 BREATHS/MIN, BLOOD PRESSURE: 156/87 MMHG, PULSE OXIMETRY: 98 %. PHYSICAL EXAM CONSTITUTIONAL: VITAL SIGNS REVIEWED AND NOTED. WELL DEVELOPED, WELL NOURISHED, AND IN NO ACUTE DISTRESS. ALERT AND ORIENTED X3. RESPIRATORY: EVEN RESPIRATIONS WITHOUT USE OF ACCESSORY MUSCLES. NO INTERCOASTAL RETRACTIONS NOTED. EVEN AND NON LABORED RESPIRATION. INTEGUMENTARY (HAIR, SKIN): VARICOSE VEINS, STASIS DERMATITIS IMPROVED. NO SWELLING OR TENDERNESS. SEE WOUND ASSESSMENT. SKIN WARM AND DRY. NO RASHES. NEUROLOGICAL: SENSATION: SYMMETRIC FUNCTION BY INFORMAL OBSERVATION. PSYCHIATRIC: ORIENTATION TO TIME, PLACE AND PERSON: NORMAL AFFECT WITH NORMAL THOUGHT PATTERN. ADDITIONAL INFORMATION THE PATIENT'S POTENTIAL TO HEAL IS: FAIR. WOUND ASSESSMENT(S) CARLOS ALBERTS [id number] 1960 WOUND #1 RIGHT, MEDIAL LEG - LOWER IS A CHRONIC FULL THICKNESS VENOUS ULCER ACQUIRED ON 02/21/2024 AND HAS RECEIVED A STATUS OF NOT HEALED. SUBSEQUENT WOUND ENCOUNTER MEASUREMENTS ARE 0.7CM LENGTH X 0.7CM WIDTH X 0.1 CM DEPTH, WITH AN AREA OF 0.49 SQ CM AND A VOLUME OF 0.049 CUBIC CM.SUBSEQUENT WOUND ENCOUNTER PREVIOUS MEASUREMENTS FROM 07/06/2024 ARE 0.6CM LENGTH X 0.8CM WIDTH X 0.2CM DEPTH, WITH AN AREA OF 0.48 SQ CM AND A VOLUME OF 0.096 CUBIC CM. ADIPOSE IS EXPOSED. NO TUNNELING HAS BEEN NOTED. NO SINUS TRACT HAS BEEN NOTED. NO UNDERMINING HAS BEEN NOTED. THERE IS A MODERATE AMOUNT OF SEROSANGUINEOUS DRAINAGE NOTED WHICH HAS NO ODOR. THE PATIENT REPORTS A WOUND PAIN OF LEVEL 0/10. THE WOUND MARGIN IS UNATTACHED WOUND BED HAS YES, BRIGHT RED, FIRM, GRANULATION, YES SLOUGH, NO ESCHAR, NO EPITHELIALIZATION. THE PERIWOUND SKIN EXHIBITED EDEMA AND HEMOSIDEROSIS. THE TEMPERATURE OF THE PERIWOUND SKIN IS WNL. PERIWOUND SKIN DOES NOT EXHIBIT SIGNS OR SYMPTOMS OF INFECTION. LOCAL PULSE IS NORMAL. ADDITIONAL INFORMATION OTHER DEVITALIZED TISSUE PRESENT: BIOFILM ASSESSMENT ACTIVE PROBLEMS ICD-10 (ENCOUNTER DIAGNOSIS) L97.812 - NON-PRESSURE CHRONIC ULCER OF OTHER PART OF RIGHT LOWER LEG WITH FAT LAYER EXPOSED (ENCOUNTER DIAGNOSIS) I87.311 - CHRONIC VENOUS HYPERTENSION (IDIOPATHIC) WITH ULCER OF RIGHT LOWER EXTREMITY GENERAL NOTES VENOUS ULCER RIGHT LOWER EXTREMITY WITH IMPROVED TISSUE QUALITY AND DECREASED PERIWOUND INFLAMMATION THE FOLLOWING FACTORS HAVE BEEN IDENTIFIED THAT MAY AFFECT WOUND HEALING: DEVITALIZED TISSUE BIOFILM VENOUS INSUFFICIENCY INFECTION GOALS: REMOVED DEVITALIZED TISSUE REMOVE AND PREVENT BIOFILM IDENTIFY AND TREAT INFECTION PREVENT SWELLING WOUND CLOSURE PREVENT RECURRENCE PLAN: DEBRIDEMENT, CONTINUE DRESSING CHANGES WITH HYDROFERA BLUE AND TWO-LAYER LIGHT COMPRESSION TWICE A WEEK. CONTINUE PROTEIN SUPPLEMENTATION, VITAMIN-C, AND ZINC. FOLLOW UP IN 1 WEEK FOR A RECHECK. RESULTS OF VEIN MAPPING ARE PENDING. PROCEDURES WOUND #1 WOUND #1 (VENOUS ULCER) IS LOCATED ON THE RIGHT, MEDIAL LEG - LOWER. A SKIN/SUBCUTANEOUS TISSUE LEVEL SURGICAL DEBRIDEMENT WITH A TOTAL AREA DEBRIDED OF 0.49 SQ CM. WAS PERFORMED BY ALEE BARROSO MD. SUBCUTANEOUS WAS REMOVED ALONG WITH DEVITALIZED TISSUE: BIOFILM, EXUDATE AND SLOUGH. THE FOLLOWING INSTRUMENT(S) WERE USED: CURETTE. PAIN CONTROL WAS ACHIEVED USING EMLA LIDOCAINE/PRILOCAINE 2.5%/2.5%. A TIME OUT WAS CONDUCTED PRIOR TO THE START OF THE PROCEDURE. A MINIMAL AMOUNT OF BLEEDING WAS CONTROLLED WITH PRESSURE. THE PROCEDURE WAS TOLERATED WELL WITH A PAIN LEVEL OF 0 SARACARLOS BROWN [id number] 1960 THROUGHOUT AND A PAIN LEVEL OF 0 FOLLOWING THE PROCEDURE. POST DEBRIDEMENT MEASUREMENTS: 0.7CM LENGTH X 0.7CM WIDTH X 0.2CM DEPTH; WITH AN AREA OF 0.49 SQ CM AND A VOLUME OF 0.098 CUBIC CM. ADDITIONAL INFORMATION MUSCLE FASCIA OR BONE REMOVED AND SENT TO PATHOLOGY?: NO WOUND #1 (VENOUS ULCER) IS LOCATED ON THE RIGHT, MEDIAL LEG - LOWER. A MULTILAYER COMPRESSION PROCEDURE WAS PERFORMED FOR THE LOWER RIGHT EXTREMITY BY MIA BLANK RN. A 2 LAYER COBAN WRAP WAS APPLIED. THE PROCEDURE WAS TOLERATED WELL WITH A PAIN LEVEL OF 0 THROUGHOUT AND A PAIN LEVEL OF 0 FOLLOWING THE PROCEDURE. GENERAL NOTES COBAN 2 REGULAR WITH REVENUE ACCOUNTING MANAGER'S PRESSURE SETTINGS PLAN WOUND ORDERS: WOUND #1 RIGHT, MEDIAL LEG - LOWER CLEANSER CLEANSE WOUND WITH NORMAL SALINE MAY SHOWER, LEAVE WOUND DRESSING INTACT. COVER WOUND DRESSING WITH A WATERPROOF BARRIER. KEEP DRESSING DRY. NO BATHS PLEASE. OTHER ORDER: - PURCHASE A SHOWER BOOT TOPICAL TREATMENTS OTHER ORDER: - TRIAMCINOLONE TO PERIWOUND IN CLINIC DRESSING ORDERS APPLY DRESSING(S) AND SECURE WITH: - ADAPTIC CURAD, HYDROFERA BLUE, SILICONE BORDER FOAM, COBAN 2 REGULAR. COMPRESSION/EDEMA CONTROL ELEVATE LEG(S) ABOVE THE LEVEL OF THE HEART MUCH POSSIBLE. AVOID STANDING IN ONE POSITION FOR MORE THAN 10 MINUTES. AVOID SITTING WITH LEGS DOWN. DO NOT CROSS LEGS WHEN SITTING. OTHER ORDER: - MAY PURCHASE A SHOWER BOOT TO KEEP WRAP DRY. DIETARY TAKE VITAMIN C 1000MG BY MOUTH DAILY. TAKE VITAMIN D3 2000 IU BY MOUTH DAILY. TAKE VITAMIN E 400 IU BY MOUTH DAILY. TAKE ZINC 25MG BY MOUTH DAILY. OTHER NUTRITIONAL SUPPLEMENT: - PROTEIN SHAKES OR OTHER MEAT. FOLLOW-UP APPOINTMENTS RETURN APPOINTMENT 1 WEEK ADDITIONAL ORDERS: HAND HYGIENE HAND HYGIENE - WASH HANDS BEFORE AND AFTER WOUND CARE. CALL THE WOUND CENTER AT [phone] IF YOU HAVE SIGNS OR SYMPTOMS OF INFECTION, FEVER CHILLS OR SHAKES, INCREASED DRAINAGE, INCREASED ODOR OR UNUSUAL REDNESS. AFTER WOUND CENTER HOURS PLEASE NOTIFY YOUR PCP OR GO TO THE EMERGENCY ROOM. PROCEDURE / ANESTHETIC 4% TOPICAL LIDOCAINE TO WOUND BED PRIOR TO PROCEDURE, IN CLINIC ONLY. DRESSING CHANGE FREQUENCY LEAVE DRESSING INTACT UNTIL YOUR NEXT WOUND CENTER APPOINTMENT. KEEP DRY. SCRIBING ATTESTATION I ATTEST, THE NURSE, THAT I SCRIBED THESE ORDERS FOR THE WOUND CARE PROVIDER. PROVIDER REVIEW AND ATTESTATION: REVIEWED AND EVALUATED LABS. REVIEWED HOSPITAL RECORDS. DISCUSSED THE PLAN OF CARE @ BEDSIDE WITH - THE PATIENT I AGREE AND ATTEST TO THE ABOVE INFORMATION PROVIDED FROM OTHER LICENSED PROFESSIONALS. PLAN OF CARE: CARLOS ALBERTS [id number] 1960 01. ENSURE/ESTABLISH OPTIMAL BLOOD FLOW : - COMPLETE LOWER EXTREMITY ASSESSMENT - ETELVINA RIGHT= 1.27 LEFT= 1.29 STATUS: COMPLETED DATE: 07/01/2024 - PERFORM NON-INVASIVE VASCULAR TESTING (I.E. ETELVINA) AND DOCUMENT FINDINGS. CONSIDER REPEATING WHEN WOUND HEALING <40% AFTER 30 DAYS OF WOUND CARE. STATUS: CONTINUED - ORDER VASCULAR CONSULT FOR EVALUATION/TREATMENT AND/OR NON-INVASIVE VASCULAR TESTING. STATUS: INITIATED DATE: 07/01/2024 - EVALUATE FOR COMPRESSION THERAPY STATUS: INITIATED DATE: 07/01/2024 02. ASSESS FOR/TREAT INFECTION : - EVALUATE FOR SIGNS AND SYMPTOMS OF INFECTION AND DOCUMENT FINDINGS. STATUS: INITIATED DATE: 07/01/2024 - OBTAIN CULTURE AND SENSITIVITY (CANDS) OR TISSUE CULTURE WHEN INFECTION IS SUSPECTED. (NOTE:) CONSIDER REPEATING WHEN WOUND HEALING <40% AFTER 30 DAYS OF WOUND CARE. STATUS: INITIATED DATE: 07/01/2024 - ORDER APPROPRIATE ANTIBIOTICS BASED ON PATIENT PRESENTATION AND CULTURE AND SENSITIVITY RESULTS. INSTRUCT PATIENT ON THE IMPORTANCE OF TAKING MEDICATION PRESCRIBED. STATUS: INITIATED DATE: 07/01/2024 - ORDER INFECTIOUS DISEASE CONSULT. STATUS: INITIATED DATE: 07/01/2024 03. DEBRIDE WEEKLY OR MORE OFTEN PRN : - EVALUATE PATIENT IN CENTER WEEKLY TO ASSESS WOUND BED AND MARGINS FOR NEED FOR DEBRIDEMENT. STATUS: INITIATED DATE: 07/01/2024 - MECHANICAL DEBRIDEMENT: STIMULATE AND/OR MAINTAIN ACUTE PHASE OF WOUND HEALING BY REDUCING BACTERIAL BURDEN AND DEVITALIZED/NON-VIABLE TISSUE. STATUS: INITIATED DATE: 07/01/2024 - DEBRIDEMENT BY ANY METHOD TO REMOVE DEVITALIZED/NECROTIC TISSUE TO PROMOTE HEALING AND PREVENT FURTHER COMPLICATIONS. GOAL IS TO STIMULATE AND/OR MAINTAIN ACUTE PHASE OF WOUND HEALING BY REDUCING BACTERIAL BURDEN AND DEVITALIZED/NON-VIABLE TISSUE. STATUS: INITIATED DATE: 07/01/2024 04. OPTIMIZE GLUCOSE CONTROL AND NUTRITION : - COMPLETE A NUTRITION RISK ASSESSMENT. STATUS: COMPLETED DATE: 07/01/2024 - REVIEWED, NOT APPLICABLE 05. OFFLOADING PLAN : - REVIEWED, NOT APPLICABLE 06. OPTIMIZE HOST FACTORS: - ASSESS AND REVIEW PATIENT HISTORY FOR WOUND ETIOLOGY, CO-MORBID CONDITIONS, MEDICATION REGIME, AND SMOKING HISTORY. STATUS: INITIATED DATE: 07/01/2024 - ASSESS LIFESTYLE FACTORS SUCH SMOKING, ALCOHOL/DRUG ABUSE, EATING HABITS/MALNUTRITION AND ACTIVITY LEVEL. STATUS: INITIATED DATE: 07/01/2024 07. DRESSING SELECTION : - EVALUATE FOR DRESSING-RELATED FACTORS, SUCH AVAILABILITY, WEAR TIME, ADAPTABILITY AND USE TO BETTER OPTIMIZE WOUND HEALING AND PATIENT COMPLIANCE. STATUS: INITIATED DATE: 07/01/2024 - CHOOSE TOPICAL TREATMENTS AND/OR DRESSING BASED ON WOUND TYPE AND APPEARANCE, PERIWOUND SKIN CONDITION, WOUND SIZE AND DEPTH, ANATOMIC LOCATION, VOLUME OF EXUDATE, EDEMA IN THE LOWER EXTREMITIES, AND RISK OR PRESENCE OF INFECTION. CARLOS ALBERTS [id number] 1960 STATUS: INITIATED DATE: 07/01/2024 08. ADVANCED MODALITIES : - REVIEWED, NOT APPLICABLE - CONTINUE TO ASSESS STATUS: INITIATED 09. FALL PREVENTION : - REVIEWED, NOT APPLICABLE STATUS: COMPLETED DATE: 07/01/2024 10. PAIN MANAGEMENT : - COMPLETE PAIN ASSESSMENT STATUS: INITIATED DATE: 07/01/2024 - INSTRUCT THE PATIENT TO CALL ?TIME-OUT? IF PAIN IS TOO INTENSE DURING PROCEDURE. STATUS: INITIATED DATE: 07/01/2024 11. MEASURABLE GOALS FOR WOUND HEALING AND/OR HYPERBARIC OXYGEN THERAPY : - REVIEWED, NOT APPLICABLE 12. DURATION/FREQUENCY OF WOUND CARE VISITS : - 2X WEEKLY FOR 30 DAYS STATUS: INITIATED DATE: 07/01/2024 13. OSTOMY : - REVIEWED, NOT APPLICABLE ELECTRONIC SIGNATURE(S) SIGNED BY: DATE: ALEE BARROSO MD 07/13/2024 15:58:23 (PT) ENTERED BY: ALEE BARROSO MD ON 07/13/2024 12:44:37 (PT) CARLOS ALBERTS [id number] 1960
== END ==
PROVIDERS: Family Provider Nurse Practitioner; PCP Family Medicine; Referring Provider Family Medicine; Visit Provider Surgery
DX: I87.2 Venous insufficiency (chronic) (peripheral) (principal); L97.812 Non-pressure chronic ulcer of other part of right lower leg with fat layer exposed; R60.0 Localized edema; L98.8 Other specified disorders of the skin and subcutaneous tissue
CPT/HCPCS: 11042; 99212

== ENCOUNTER → 2024-07-20 08:47 | Outpatient (CLI) | payer OTHER, SELFPAY | PROVIDERS: Family Provider Nurse Practitioner; PCP Family Medicine; Referring Provider Family Medicine; Visit Provider Surgery | DX: I87.2 Venous insufficiency (chronic) (peripheral) (principal); L97.812 Non-pressure chronic ulcer of other part of right lower leg with fat layer exposed; L98.8 Other specified disorders of the skin and subcutaneous tissue; R60.0 Localized edema | CPT/HCPCS: 11042 ==

== ENCOUNTER → 2024-07-27 10:54 | Outpatient (CLI) | payer OTHER, SELFPAY | LOC: WC 09-07 10:55 | PROVIDERS: Family Provider Nurse Practitioner; PCP Family Medicine; Referring Provider Family Medicine; Visit Provider Surgery | DX: I87.2 Venous insufficiency (chronic) (peripheral) (principal); L97.812 Non-pressure chronic ulcer of other part of right lower leg with fat layer exposed; L98.8 Other specified disorders of the skin and subcutaneous tissue; R60.0 Localized edema | CPT/HCPCS: 29581 ==

== ENCOUNTER → 2024-08-03 09:49 | Outpatient (CLI) | payer OTHER, SELFPAY | PROVIDERS: Family Provider Nurse Practitioner; PCP Family Medicine; Referring Provider Family Medicine; Visit Provider Surgery | DX: I87.2 Venous insufficiency (chronic) (peripheral) (principal) | CPT/HCPCS: 99213 ==